=== PATIENT | female | born 1955 | race Caucasian/White ===

== ENCOUNTER 2019-01-12 11:54 | Emergency (ER) | payer MEDICAID ==
[~2019-01-12] VITALS: Ht 157.5 cm; Wt 56.2 kg
[2019-01-12 12:08] VITALS: BP 114/77
[2019-01-12] MEDS ORDERED: PANTOPRAZOLE 40 MG TAB PO ONE (13:30)
[2019-01-12] MEDS ORDERED: LORazepam 0.5 MG TAB PO ONE (13:30)
== END 2019-01-12 14:11 | disposition home or self-care (01) ==
LOC: ER 11:54
DX: F41.9 Anxiety disorder, unspecified (principal); K21.9 Gastro-esophageal reflux disease without esophagitis; M06.9 Rheumatoid arthritis, unspecified; F17.210 Nicotine dependence, cigarettes, uncomplicated; F12.90 Cannabis use, unspecified, uncomplicated; Z88.2 Allergy status to sulfonamides; Z76.0 Encounter for issue of repeat prescription